=== PATIENT | female | born 1950 | race Two or more races ===

== ENCOUNTER 2022-12-12 21:34 | Emergency (ER) | payer OTHER ==
[~2022-12-12] VITALS: Ht 165.1 cm; Wt 65.8 kg
[2022-12-12] MEDS ORDERED: ATORVASTATIN CA10 MG PO (21:59)
[2022-12-13] MEDS ORDERED: PEPCID40 MG PO (02:42)
[2022-12-13] MEDS ORDERED: ONDANSETRON ODT4 MG PO (02:42)
[2022-12-13] MEDS ORDERED: LEVSIN/SL0.125 MG SL ×2 (02:42→02:43)
[2022-12-13] MEDS ORDERED: INTESTINEX680 M1 PO (02:42)
== END 2022-12-13 02:50 ==
LOC: ER 21:34
DX: R10.9 Unspecified abdominal pain (principal); E78.00 Pure hypercholesterolemia, unspecified; K52.9 Noninfective gastroenteritis and colitis, unspecified